=== PATIENT | female | born 1955 | race Caucasian/White ===

== ENCOUNTER → 2017-05-21 | Outpatient (CLI) | payer BC ==
--- NOTE | 2017-05-21 14:04 | MAMMOGRAPHY REPORT ---
BILATERAL DIGITAL SCREENING MAMMOGRAM TOMOSYNTHESIS WITH CAD: 05/21/2017 CLINICAL HISTORY: Routine screening. Patient has no complaints. TECHNIQUE: Breast tomosynthesis in addition to standard 2D mammography was performed. Current study was also evaluated with a Computer Aided Detection (CAD) system. COMPARISON: Comparison is made to exams dated: 05/21/2016 ultrasound, 05/21/2016 mammogram, 05/19/2016 m ammogram, 05/04/2015 mammogram - [facility], 03/24/2013 mammogram, and 09/24/2010 lilly mogram. BREAST COMPOSITION: There are scattered areas of fibroglandular density in both breasts. FINDINGS: No suspicious masses, calcifications, or areas of architectural distortion are noted in ei ther breast. There has been no significant interval change compared to prior exams. Scattered bilater al benign-appearing calcifications are not significantly changed. IMPRESSION: ACR BI-RADS CATEGORY 2: BENIGN There is no mammographic evidence of malignancy. A 1 year screening mammogram is recommended. The pa tient will receive written notification of the results. Approximately 10% of breast cancers are not detected with mammography. A negative mammographic report should not delay biopsy if a clinically suggestive mass is present. Jessi Cooper M.D. /:05/21/2017 08:47:34 Shipfitters Supervisor: Zahida Celeste, [facility] letter sent: Normal 1/2 BI-RADS Code: ACR BI-RADS Category 2: Benign
== END | disposition home or self-care (01) ==
LOC: C.MAMM 07:36
PROVIDERS: ATTEND Obstetrics & Gynecology
DX: Z12.31 Encounter for screening mammogram for malignant neoplasm of breast (principal)

== ENCOUNTER → 2018-06-07 | Outpatient (CLI) | payer OTHER ==
--- NOTE | 2018-06-07 13:56 | MAMMOGRAPHY REPORT ---
BILATERAL DIGITAL SCREENING MAMMOGRAM TOMOSYNTHESIS WITH CAD: 06/07/2018 CLINICAL HISTORY: Routine screening. Patient has no complaints. TECHNIQUE: Breast tomosynthesis in addition to standard 2D mammography was performed. Current study w as also evaluated with a Computer Aided Detection (CAD) system. COMPARISON: Comparison is made to exams dated: 05/21/2017 mammogram, 05/21/2016 mammogram, 05/19/2016 ma mmogram, 05/04/2015 mammogram - [facility], 03/24/2013 mammogram, and 09/24/2010 mamm ogram. BREAST COMPOSITION: There are scattered areas of fibroglandular density in both breasts. FINDINGS: No suspicious masses, calcifications, or areas of architectural distortion are noted in either breast . There has been no significant interval change compared to prior exams. IMPRESSION: ACR BI-RADS CATEGORY 1: NEGATIVE There is no mammographic evidence of malignancy. A 1 year screening mammogram is recommended.( 019) The patient will receive written notification of the results. Some breast cancers are not detected with mammography. A negative mammographic report should not yokasta y biopsy if a clinically suggestive mass is present. Jessi Cooper M.D. ah/:06/07/2018 07:52:03 Finance Business Manager: Zahida Celeste, [facility] letter sent: Normal 1/2 BI-RADS Code: ACR BI-RADS Category 1: Negative
== END | disposition home or self-care (01) ==
LOC: C.MAMM 07:33
PROVIDERS: ATTEND Obstetrics & Gynecology
DX: Z12.31 Encounter for screening mammogram for malignant neoplasm of breast (principal)

== ENCOUNTER 2020-08-31 08:28 | Observation (INO) ==
--- NOTE | 2020-08-06 08:34 | PAT Medication Instructions ---
Medication Instructions Date of Service August 06, 2020 Home Medications Medication Instructions Recorded Nathen Hsieh #1 ea 06/25/20 Joint Plus 1 tab PO QAM albuterol sulfate 2 puff INHALATION 6XD PRN hydrochlorothiazide 25 mg PO QAM levothyroxine [Synthroid] 150 mcg PO 2XWK levothyroxine [Synthroid] 175 mcg PO 5XWK naproxen sodium [Aleve] 220 mg PO QAM quinapril 10 mg PO QAM ASK your surgeon for instructions naproxen sodium [Aleve] 220 mg PO QAM STOP taking 2 weeks before surgery (or as soon as possible if surgery is within 2 weeks) Joint Plus 1 tab PO QAM DO NOT take the morning of surgery hydrochlorothiazide 25 mg PO QAM quinapril 10 mg PO QAM Take morning of surgery With a small sip of water, OTHERWISE NOTHING TO EAT OR DRINK AFTER MIDNIGHT: albuterol sulfate 2 puff INHALATION 6XD PRN (use if needed; please bring with you to hospital day of surgery if possible) levothyroxine [Synthroid] Other Notes If you have any questions please call us at [phone] or [phone] or [phone] or [phone]
--- NOTE | 2020-08-07 10:23 | Anesthesiology Consultation ---
Date of Service August 07, 2020 Assessment & Plan (1) Encounter for pre-operative examination: Per assessment on 08/07: Travel screen negative. No known COVID-19 positive contacts or current COVID-19 related symptoms. Surgeon arranging preop COVID testing . Awaiting results. Chart Review Chart Review: Acceptable Risk for Surgery and Patient seen in Pre Admission Testing Teaching & Discussion Pre-Anesthesia Teaching/Discussion Notes: Instructed NPO after midnight before surgery,except medications with 15 cc of water. Medication instructions provided according to the PAT guidelines. History Surgery Operation Date: 08/31/20 07:00 Proposed Procedures p Left Total Knee Arthroplasty - iMchele Ferrer MD Height/Weight Height: 5 ft 4 in Weight: 108.2 kg Allergies Allergy/AdvReac Type Severity Reaction Status Date / Time No Known Allergies Allergy Verified 07/26/20 08:41 Medications Home Medications Medication Instructions Recorded Confirmed Last Taken Wheeled Walker #1 ea 06/25/20 06/25/20 Unknown Joint Plus 1 tab PO QAM 07/26/20 07/26/20 Unknown albuterol sulfate 2 puff INHALATION 6XD PRN 07/26/20 07/26/20 Unknown hydrochlorothiazide 25 mg PO QAM 07/26/20 07/26/20 Unknown levothyroxine [Synthroid] 150 mcg PO 2XWK 07/26/20 07/26/20 Unknown levothyroxine [Synthroid] 175 mcg PO 5XWK 07/26/20 07/26/20 Unknown naproxen sodium [Aleve] 220 mg PO QAM 07/26/20 07/26/20 Unknown quinapril 10 mg PO QAM 07/26/20 07/26/20 Unknown Past Medical History Medical History Bilateral primary osteoarthritis of knee GERD (gastroesophageal reflux disease) occasional History of bronchitis remote hx, inhaler PRN (rare use) Hypertension Hypothyroidism Morbid obesity Exercise / Class Metabolic Activity II 4-5 Yardwork/Stairs/Walk up hill Past Family History Family History Uncle Family history of diabetes mellitus Uncle Family history of diabetes mellitus Aunt Family history of diabetes mellitus Aunt Family history of diabetes mellitus Past Surgical History Surgical History History of colonoscopy History of tooth extraction WTE Past Anesthesia History No Hx of Anesthesia Complications and No Family Hx of Anesthesia Complications History of PONV No Hx of PONV and No Hx of Motion Sickness Social History Smoking Status: Former smoker Do You Dip or Chew Tobacco: No Smoking End Date: Quit 30 yrs ago Hx Alcohol Use: Yes Alcohol type: beer and wine alcohol intake frequency: a few times a week Hx Substance Use: No Review of Systems Patient denies chest pain, shortness of breath, dyspnea on exertion, fever, chills, cough, wheezing, palpitations. Physical Exam Vital Signs VITALS BP 134/90 P 81 TEMP 98.5 SP02 100%RA RESP 16 PHYSICAL Full neck and c-spine range of motion. Full TMJ range of motion. TMD 3 finger breaths Mallampati Score 2 Dentition: intact, several crowns on molars Lungs: clear throughout to auscultation Cardiac: regular rate and rhythm, no murmurs noted Spine: normal Carotid arteries: negative bruit Extremities: no edema Short, thick neck Testing Laboratory Results 08/07/20 10:45 08/07/20 11:31 PT 10.3 Seconds (9.0-12.0) 08/07/20 10:45 INR 1.0 (0.9-1.1) 08/07/20 10:45 APTT 28.3 Seconds (21.0-31.0) 08/07/20 10:45 Blood Type A Positive 08/07/20 10:45 Antibody Screen NEGATIVE 08/07/20 10:45 Electrocardiogram Date: 08/07/20 SR with PAC's at 81bpm. Chest X-Ray Date: 08/07/20 FINDINGS: The heart is borderline enlarged. There is aortic tortuosity. There is no failure. There is no focal pulmonary consolidation. There are no pleural effusions. IMPRESSION: No active disease in the chest.
--- NOTE | 2020-08-07 11:55 | XRay Report ---
XR chest Pre-admission PA/Lat CLINICAL HISTORY: Preoperative chest COMPARISON STUDY: No previous studies for comparison. FINDINGS: The heart is borderline enlarged. There is aortic tortuosity. There is no failure. There is no focal pulmonary consolidation. There are no pleural effusions.[ IMPRESSION: No active disease in the chest. ACT 112: Negative or not required by law. Electronically signed by: Malachi Elias M.D. 08/07/2020 11:54 AM
[2020-08-07 12:09] LABS: Basophils # (auto) 0.04 K/uL (0-0.2); Basophils % (auto) 0.5 %; Eosinophils % (auto) 3.6 %; Hematocrit (blood only) 42.4 % (37-47); Hemoglobin 13.8 g/dL (12.0-16.0); Immature Granulocytes # (auto) 0.04 K/uL (0.00-0.02); Immature Granulocytes % (auto) 0.5 %; Lymphocytes # (auto) 2.37 K/uL (1.2-3.4); Lymphocytes % (auto) 28.1 %; Mean Corpuscular Hemoglobin 30.1 pg (25-34); Mean Corpuscular Hgb Conc 32.5 g/dL (32-36); Mean Corpuscular Volume 92.4 fL (80-100); Monocytes # (auto) 0.57 K/uL (0.11-0.59); Monocytes % (auto) 6.8 %; Neutrophils # (auto) 5.11 K/uL (1.4-6.5); Neutrophils % (auto) 60.5 %; Platelet Count 334 K/uL (130-400); RDW Coefficient of Variation 13.1 % (11.5-14.5); Red Blood Count 4.59 M/uL (4.2-5.4); White Blood Count 8.43 K/uL (4.8-10.8)
[2020-08-07 12:19] LABS: Partial Thromboplastin Time 28.3 Seconds (21.0-31.0); Prothrombin Time 10.3 Seconds (9.0-12.0)
[2020-08-07 13:00] LABS: BUN Creatinine Ratio 18.8 (10-20); Calcium 9.4 mg/dl (8.5-10.1); Creatinine Clr Calc Pharmacy 66.9 ml/min; Est GFR (African American) 67.3; Est GFR (Non-African American) 58.1; Potassium 4.9 mmol/L (3.5-5.1)
--- NOTE | 2020-08-08 06:08 | Electrocardiogram Report ---
Test Reason : Blood Pressure : / mmHG Vent. Rate : 081 BPM Atrial Rate : 081 BPM P-R Int : 152 ms QRS Dur : 090 ms QT Int : 386 ms P-R-T Axes : 068 036 040 degrees QTc Int : 448 ms Sinus rhythm with Premature atrial complexes Otherwise normal ECG No previous ECGs available Confirmed by Abdias Sumner ([id number]) on 08/08/2020 6:07:56 AM Referred By: Michele Ferrer Confirmed By:Abdias Sumner
--- NOTE | 2020-08-25 08:19 | History and Physical Report ---
DATE OF ADMISSION: 08/31/2020 CHIEF COMPLAINT: Bilateral knee pain and discomfort, left side greater than right. 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 She has got a long history of bilateral knee pain and discomfort, describes it has gotten worse over time. She enjoys exercising, but over the past year or two, she has been unable to do this due to her knee pain. The left side is worse than the right. She had an extensive conservative treatment including injections, which did not help at all. She had Euflexxa as well which helped for a short period of time, but became less effective over time. She describes global pain. It is increased with weightbearing. She feels like she is at the end of the rope and would like to proceed with intervention. PAST MEDICAL HISTORY: 1. Hypothyroidism. 2. Hypertension. 3. Asthma. PAST SURGICAL HISTORY: None. ALLERGIES: None. CURRENT MEDICATIONS: Include: 1. Accupril. 2. Hydrochlorothiazide. 3. Synthroid. 4. Albuterol. SOCIAL HISTORY: A 65-year-old female. Works at [email or web address]. She is . 1-2 drinks per day. Two children. Does not smoke. FAMILY HISTORY: Significant for heart disease and blood clots. There is no known clotting disorders. REVIEW OF SYSTEMS: Negative for diabetes, neurologic problem, vascular problem, bleeding disorders. No chest pain or shortness of breath. No history of DVT or PE. PHYSICAL EXAMINATION: GENERAL: Shows a pleasant, middle-aged female, looks to be in reasonably good health. HEENT: Benign. NECK: Supple, no lymphadenopathy. LUNGS: Clear to auscultation. HEART: Has a regular rate and rhythm. ABDOMEN: Soft, nontender, nondistended. EXTREMITIES: Grossly neurovascularly intact except as follows. Examination of both knees reveal the patient walks with a bit of waddling gait. She has got varus alignment to both knees. Examination of the left knee reveals varus alignment. She is tender over the medial joint line. Small knee effusion. Range of motion about 5 degrees short of full extension to 120 degrees of flexion. There is no instability. Examination of the right knee reveals similar varus alignment. She is tender over the medial joint line. Small knee effusion. Range of motion 5-125. No instability. X-RAYS: X-rays of both knees are reviewed. Shows advanced bilateral knee DJD. She has got complete loss of medial joint space on both sides. She has got osteophytes in all 3 compartments. ASSESSMENT: A 65-year-old female with advanced bilateral knee degenerative joint disease. She has failed conservative measures. The left knee is bothered more than the right and she would like to proceed with left knee replacement. PLAN: We are going to proceed with left total knee replacement. The risks and benefits of this procedure were explained to the patient including but not limited to DVT, PE, , infection, neurological injury, vascular injury, bleeding problem, pain, limited range of motion, stiffness, failure to relieve her symptoms, incomplete relief of symptoms, need for further surgery in future, fracture, leg length inequality, nerve palsy, persistent pain, etc. The patient understands and desires to proceed. Informed consent was obtained. She will have to hold her Accupril the morning of surgery. Take the Synthroid with a sip of water. As far as discharge plans, she will likely be discharged home using [facility] home health program.
[~2020-08-31 08:28] MED LIST: ACETAMINOPHEN 500 MG TAB PO SCH; BUPIVACAINE 0.5 % 5 MG/1 ML PF 10ML VIAL ONE; BUPIVACAINE LIPOSOME/PF 266 MG, BUPIVACAINE/EPINEPHRINE 50 ML, SODIUM CHLORIDE 0.9% 30 ... INFIL SCH; GABAPENTIN 600 MG DOSE PO SCH; LR 500ML BOLUS, THEN 15ML/HR IV SCH; LR 60ML/HR IV SCH; METOCLOPRAMIDE HCL 10 MG TABLET PO SCH; MIDAZOLAM HCL 1 MG/ML 2ML VIAL ONE; TRANEXAMIC ACID 1,000 MG **IV Intra-op IV SCH; ceFAZolin 2000MG 2,000 MG/15 ML SYR IV SCH; fentaNYL citrate 100 MCG/2 ML VIAL ONE
--- NOTE | 2020-08-31 08:52 | History & Physical Bridge Note ---
Date of Service August 31, 2020 History & Physical Bridge Note I have examined the patient, reviewed the History & Physical and in the interval since the performance of the History & Physical I have noted the following changes of clinical significance: no changes noted
[2020-08-31] MEDS ORDERED: BUPIVACAINE 0.5 % 5 MG/1 ML PF 10ML VIAL ONE (10:17)
[2020-08-31] MEDS ORDERED: ONDANSETRON INJ 2 MG/ML 2 ML VIAL ONE (10:22)
[2020-08-31] MEDS ORDERED: LIDOCAINE HCL 2% 2 ML VIAL/AMP(20MG/ML) INFIL ONE (10:22)
[2020-08-31] MEDS ORDERED: PROPOFOL IV EMULSION 10 MG/ML 20 ML VIAL IV ONE ×3 (10:22→12:54)
[2020-08-31] MEDS ORDERED: SODIUM CHLORIDE 0.9% PF 50 ML VIAL ONE (11:35)
[2020-08-31] MEDS ORDERED: BUPIVACAINE LIPOSOME 1.3% 266 MG/20 ML VIAL ONE (11:35)
[2020-08-31] MEDS ORDERED: BACITRACIN INJ 50,000 UNIT VIAL ONE (11:35)
[2020-08-31] MEDS ORDERED: BUPIVACAINE 0.25% 30 ML VIAL ONE (11:36)
[2020-08-31] MEDS ORDERED: EPINEPHrine INJ 1 MG/ML AMP ONE (11:36)
[2020-08-31] MEDS ORDERED: MIDAZOLAM HCL 1 MG/ML 2ML VIAL ONE (11:53)
--- NOTE | 2020-08-31 13:34 | Post Operative Brief Note ---
PG Immediate Post Op with CF Date of Surgery August 31, 2020 Pre & Post Diagnosis Operation Date: 08/31/20 10:40 Pre-Op Diagnosis: Left Knee Advanced Degenerative Joint Disease Post-Op Diagnosis: Left Knee Advanced Degenerative Joint Disease I identified the patient and participated in the time-out.: Yes Procedure Operation Date: 08/31/20 10:40 Actual Procedures p Left Total Knee Arthroplasty(Left) - Michele Ferrer MD Surgeon Michele Ferrer MD Systems Admin ZAHIRA Gibbons Estimated Blood Loss 50 Findings Consistent with Post-Op Diagnosis Fluids 500 cc Specimens Specimen Description: A. Left Knee Bone and Tissue Drains Odonnell Catheter Anesthesia Type Spinal MAC Complications none Disposition Accompanied Patient To Recovery: No Disposition: Recovery Room
--- NOTE | 2020-08-31 13:49 | Operative Report ---
Post Operative Report Pre & Post Diagnosis Operation Date: 08/31/20 10:40 Pre-Op Diagnosis: Left Knee Advanced Degenerative Joint Disease Post-Op Diagnosis: Left Knee Advanced Degenerative Joint Disease I identified the patient and participated in the time-out.: Yes Procedure Operation Date: 08/31/20 10:40 Actual Procedures p Left Total Knee Arthroplasty(Left) - Michele Ferrer MD Surgeon Michele Ferrer MD Managed Care Analyst ZAHIRA Gibbons Estimated Blood Loss 50 Findings Consistent with Post-Op Diagnosis Operative findings revealed advanced left knee DJD. She had extensive grade 4 bhig-ta-pazm disease and eburnation of the medial compartment. She had a focal area of grade 4 chondrosis of the lateral femoral condyle and some focal grade 4 changes of the trochlea as well. She had a large knee joint effusion. Varus deformity to her knee. Fluids 500 cc. Specimens Left knee sent for pathology. Drains None. Anesthesia Type Spinal MAC Complications none Disposition Accompanied Patient To Recovery: No Disposition: Recovery Room Indications Patient is a 65-year-old female has had a fairly long history of bilateral knee pain discomfort is gradually gotten worse over the years. She has been through extensive conservative treatment which became less effective over time. X-ray showed bilateral knee DJD. She elected proceed with left total knee arthroplasty. Description of Procedure Operative implants consisted of: 1. Biomet Vanguard size 62.5 left posterior stabilized femoral component. 2. Biomet size 67 tibial tray. 3. 10 mm posterior stabilized polyethylene insert. 4. 28 x 8 all polypatella. Patient was taken to the operating identified and placed on the operating table supine position but all contact areas were properly padded. IV antibiotics tried by anesthesia team. A spinal anesthetic and abductor canal block had been provided in the holding area. A Odonnell catheter was placed in sterile fashion. Left thigh turn was then placed in left lower extremities and prepped and draped in usual sterile fashion. The left leg was elevated exsanguinated with use of an Esmarch and tourniquet placed at 3 mmHg. An anterior approach to the left knee was then performed to longitudinal incision centered over the patella. Sharp dissection was got through subcutaneous tissue down to the extensor mechanism. A medial parapatellar arthrotomy incision was made. Some subperiosteal dissection was carried out medially. The fat pad was resected from each patella tendon. The lateral patellofemoral ligament was released. Patella was subluxated laterally and the knee was flexed. The osteophytes were taken off distal femur. The ACL and PCL were then released from the distal femur and the tibia subluxated anteriorly. The external tibial alignment jig was then placed in the interface the tibia and adjusted 14 mm medially. The proximal tibial cut was made remove about a millimeter bone from most efficient aspect the medial tibial plateau. Some osteophytes were taken off medial and posterior medially. The tibia was then sized to a size 67. We did downsize a slightly in order to get better rotation. Attention drawn the femur. The distal femur stem with a sharp drill. Intramedullary canal was suction. A left 5 degree valgus cutting guide was placed. The distal femoral cutting block was pinned in place. Distal femoral cut was made to take an additional 3 mm bone off distal femur. The femur was then sized to a size 62.5. The AP cutting block was pinned parallel to the epicondylar axis which was 5 degrees of external rotation. The anterior cut, anterior chamfer, posterior cut, posterior chamfer cuts were made. Box cutting guide was placed in just slight lateral box cut was made. The knee was flexed. The remnants of the medial lateral menisci were excised. The osteophytes were taken off the posterior aspect of the femur. A trial femoral component was placed. The tibial tray was pinned in maximum external rotation and the drill and stem punch were used to create defect in proximal to for the tibial tray. The knee was then trialed and the 10 mm insert fit most appropriately. Attention drawn the patella. The patella was cleaned of all soft tissues. Patella thickness measured 22 mm in thickness and was cut to 14. Was sized to a size 28 patella. The lug holes were drilled for the 28 patella. The lateral osteophyte is moved. Patella button was placed. Knee was taken through range of motion and the patella tracked nicely with no thumbs test. Attention drawn to place the permanent components. All trial components were removed. Bone plug was placed in the distal femur limit blood loss put a double batch Palacos G cement was mixed. BiomStarGenguard size 62.5 left posterior stabilized femoral component, a size 67 tibial tray, 10 mm posterior box polyethylene insert, and a 28 x 8 all polypatella and then cemented in place. Knee was brought out into full extension until cement hardened. Final cement check was then performed. The pericapsular tissues were injected with 100 cc of combination of 20 cc of Exparel, 30 cc normal saline, 50 cc quarter percent Marcaine with epinephrine. The patient did receive 1 g tranexamic acid. The tourniquet was then let down for final turn time 58 minutes. Hemostasis assured use electrocautery. Extensor mechanism closed with combination 1 PDS suture #1 Vicryl suture in [id number] fashion. Extensor mechanism checked found to be intact the subcutaneous tissue then closed with 2 Dexon suture in a buried interrupted fashion skin was closed skin boy. Leg was then cleaned dried and sterile dressed with Xeroform, 4 x 4's, sterile ABD pad, sterile cast padding, Mert bandage were applied. Patient then transferred to the recovery room in stable condition. Patient tolerated procedure well no complications. Joseph Gibbons, my physician medical office assistant instructor, was present for the entire procedure. His assistance was essential and required for appropriate patient positioning, prepping and draping, surgical exposure, performing the technical details of the operation, placement the implants, closure of the wound, and placement of the sterile bandage. I attest to the content of the Intraoperative Record and any orders documented therein. Any exceptions are noted below.
[2020-08-31] MEDS ORDERED: ATROPINE SULFATE 0.1 MG/ML 10ML SYR IV PRN (14:07)
[2020-08-31] MEDS ORDERED: ePHEDrine sulfate 50 MG/ML AMP IV PRN (14:07)
[2020-08-31] MEDS ORDERED: fentaNYL citrate 100 MCG/2 ML VIAL IV PRN (14:07)
[2020-08-31] MEDS ORDERED: ONDANSETRON INJ 2 MG/ML 2 ML VIAL IV PRN ×2 (14:07→14:42)
--- NOTE | 2020-08-31 14:08 | Anesthesiology Progress Note ---
Date of Service August 31, 2020 Anesthesia Post Procedure Vital Signs Vital Signs: Temp Pulse Pulse Resp BP Pulse Ox 08/31/20 13:55 82 17 146/91 H 100 08/31/20 13:45 67 14 144/75 H 99 08/31/20 13:39 98.1 F 79 14 140/87 100 08/31/20 09:26 98.8 F 88 20 180/86 H 98 Pain Intensity Left Knee: Pain Intensity: 3 Transfer of Care Handoff Completed per policy Notes Mental Status: alert / awake / arousable and participated in evaluation Patient Amnestic to Procedure: Yes Nausea / Vomiting: adequately controlled Pain: adequately controlled Airway Patency, RR, SpO2: stable & adequate BP & HR: stable & adequate Hydration State: stable & adequate Neuraxial Anesthesia: was administered and sensory block is resolving Anesthetic Complications: no major complications apparent and Pt Satisfied with anesthetic care
--- NOTE | 2020-08-31 14:10 | XRay Report ---
LEFT KNEE 2 VIEWS History: Left total knee arthroplasty. Degenerative arthritis. Postop. FINDINGS: The patient is status post a left total knee arthroplasty. The hardware is intact. No fract ure or dislocation. Skin boy are in place. IMPRESSION: Left total knee arthroplasty. No evidence for hardware complication. ACT 112: Negative or not required by law. Electronically signed by: Geoffrey Lara M.D. 08/31/2020 2:09 PM
[2020-08-31] MEDS ORDERED: INFLUENZA VIRUS QUAD VACCINE 0.5 ML SYR IM ONE (14:41)
[2020-08-31] MEDS ORDERED: INFLUENZA ADMINISTRATION CHARGE ONE (14:41)
[2020-08-31] MEDS ORDERED: MAGNESIUM HYDROXIDE SUSP 30 ML UDC PO PRN (14:42)
[2020-08-31] MEDS ORDERED: ALBUTEROL HFA 8 GM INHALER INH PRN (14:42)
[2020-08-31] MEDS ORDERED: ALUMINUM/MAGNESIUM SUSP 30 ML UDC PO PRN (14:42)
[2020-08-31] MEDS ORDERED: HYDROmorphone INJ 0.5 MG/0.5 ML SYR IV PRN (14:42)
[2020-08-31] MEDS ORDERED: METOCLOPRAMIDE HCL INJ 5 MG/ML 2 ML VIAL IV PRN (14:42)
[2020-08-31] MEDS ORDERED: diphenhydrAMINE Capsule 25 MG CAP PO PRN (14:42)
[2020-08-31] MEDS ORDERED: oxyCODONE HCL IR 5 MG TAB (IMMEDIATE RELEASE) PO PRN (14:42)
[2020-08-31] MEDS ORDERED: NALOXONE HCL 0.4 MG/1 ML VIAL/CARP IV PRN (14:42)
[2020-08-31] MEDS ORDERED: bisacodyL 10 MG SUPP PR PRN (14:42)
[2020-08-31] MEDS: ACETAMINOPHEN 500 MG TAB PO SCH ×2 (17:16→22:42)
[2020-08-31] MEDS: KETOROLAC 30 MG/ML VIAL IV SCH (17:17)
[2020-08-31] MEDS: Scopolamine CHECK PATCH PLACEMENT SCH (17:23)
[2020-08-31] MEDS: SODIUM CHLORIDE 0.9% 1000ML 1,000 ML IV SCH (17:23)
[2020-08-31] MEDS: FERROUS GLUCONATE 324 MG TAB PO SCH (18:30)
[2020-08-31] MEDS: ASCORBIC ACID 500 MG TAB PO SCH (18:30)
[2020-08-31] MEDS ORDERED: TRANEXAMIC ACID / 0.7% NACL 1,000 MG/100 ML BAG IV SCH (19:38)
[2020-08-31] MEDS: ceFAZolin 2000MG 2,000 MG/15 ML SYR IV SCH (20:49)
[2020-08-31] MEDS: ASPIRIN 81 MG ECTAB PO SCH (20:51)
[2020-08-31] MEDS: DOCUSATE SODIUM 100 MG CAP PO SCH (20:52)
[2020-08-31] MEDS: TAPENTADOL HCL ER 50 MG TABCR PO SCH (20:56)
[2020-08-31] MEDS ORDERED: SENNA 8.6 MG TAB PO SCH (21:00)
[2020-09-01] MEDS: KETOROLAC 30 MG/ML VIAL IV SCH ×3 (00:05→12:16)
[2020-09-01] MEDS: Scopolamine CHECK PATCH PLACEMENT SCH ×2 (00:05→08:14)
[2020-09-01] MEDS: ceFAZolin 2000MG 2,000 MG/15 ML SYR IV SCH (03:11)
[2020-09-01] MEDS: SODIUM CHLORIDE 0.9% 1000ML 1,000 ML IV SCH (03:11)
[2020-09-01] MEDS: ACETAMINOPHEN 500 MG TAB PO SCH ×2 (05:54→12:15)
[2020-09-01] MEDS ORDERED: LEVOTHYROXINE SODIUM 175 MCG TABLET PO SCH (06:30)
[2020-09-01 07:21] LABS: Hematocrit (blood only) 36.4 % (37-47); Hemoglobin 11.9 g/dL (12.0-16.0); Mean Corpuscular Hemoglobin 30.1 pg (25-34); Mean Corpuscular Hgb Conc 32.7 g/dL (32-36); Mean Corpuscular Volume 92.2 fL (80-100); Mean Platelet Volume 10.2 fL (7.4-10.4); Platelet Count 274 K/uL (130-400); RDW Coefficient of Variation 12.6 % (11.5-14.5); RDW Standard Deviation 42.8 fL (36.4-46.3); Red Blood Count 3.95 M/uL (4.2-5.4); White Blood Count 8.23 K/uL (4.8-10.8)
[2020-09-01 07:43] LABS: BUN Creatinine Ratio 18.8 (10-20); Calcium 8.1 mg/dl (8.5-10.1); Creatinine Clr Calc Pharmacy 59.5 ml/min; Est GFR (African American) 58.9; Est GFR (Non-African American) 50.8; Potassium 3.9 mmol/L (3.5-5.1)
[2020-09-01] MEDS: ASPIRIN 81 MG ECTAB PO SCH (08:14)
[2020-09-01] MEDS: TAPENTADOL HCL ER 50 MG TABCR PO SCH (08:15)
[2020-09-01] MEDS: ASCORBIC ACID 500 MG TAB PO SCH (08:15)
[2020-09-01] MEDS: FERROUS GLUCONATE 324 MG TAB PO SCH (08:15)
[2020-09-01] MEDS: DOCUSATE SODIUM 100 MG CAP PO SCH (08:15)
--- NOTE | 2020-09-01 08:41 | Progress Notes ---
DATE: 09/01/2020 SUBJECTIVE: A 65-year-old female postop day 1 from left knee replacement. She is doing pretty well. Had a pretty good night. Pain is controlled. No chest pain or shortness of breath. Not feeling dizzy or lightheaded. OBJECTIVE: VITAL SIGNS: Temperature 36.6. Vital signs stable. GENERAL: Shows a pleasant, middle-aged female. She is sitting up in her bedside chair, looks pretty comfortable this morning. EXTREMITIES: Examination of the leg reveals the leg to be well aligned. Dressing is clean, dry and intact. She can dorsiflex and plantarflex her foot appropriately. She can do a pretty good straight leg raise. LABORATORY DATA: Hemoglobin 11.9. Hematocrit 36.4. Electrolytes are stable. ASSESSMENT: A 65-year-old female postoperative day 1 from a left knee replacement, doing pretty well. Her pain is controlled. She is neurologically intact. PLAN: 1. DVT prophylaxis including thigh-high TEDs, SCDs, and aspirin twice a day. 2. PT/OT. Weight bear as tolerated. Left total knee protocol. 3. Pain control, doing well with current pain regimen. 4. Disposition: Plan to discharge to home with some home health later today if her pain is controlled and she does okay in therapy.
[2020-09-01] MEDS ORDERED: ENALAPRIL MALEATE 10 MG TAB PO SCH (09:00)
[2020-09-01] MEDS ORDERED: hydroCHLOROthiazide 25 MG TAB PO SCH (09:00)
[2020-09-01] MEDS ORDERED: MULTIVITAMIN TAB PO SCH (09:00)
[2020-09-03] MEDS ORDERED: LEVOTHYROXINE SODIUM 150 MCG TABLET PO SCH (06:30)
--- NOTE | 2020-09-06 07:53 | Discharge Summary ---
Date of Service September 06, 2020 Admission HPI Per Admitting Provider Documented in the H & P Admission Exam (Per Admitting) Constitutional Documented in the H & P Discharge Data Consultations 08/31/20 14:42 Consult Case Management - Discharge Planning Routine Procedures Performed Operation Date: 08/31/20 10:40 Actual Procedures p Left Total Knee Arthroplasty(Left) - Michele Ferrer MD Hospital Course (1) Status post total left knee replacement: This patient is a 65 year old female admitted on 08/31/20 and underwent total knee arthroplasty. She tolerated the procedure well and there were no complications. Transferred to the PACU post op and later to the orthopedic floor for further care. She was given ancef for antibiotic prophylaxis. She was also given MIKE stockings, SCDs, and aspirin for DVT prophylaxis. Hemoglobin, hematocrit, and vital signs were monitored during her hospital stay and remained stable. Did not require any blood transfusions. There were no complications during her hospital stay. By post op day #1 the patient was tolerating a regular diet, pain was reasonably controlled with oral pain medicine, and she was participating in physical therapy. On post op day #1 the patient was discharged home and set up with home health care. She was given printed discharge instructions including prescriptions for extra strength tylenol, aspirin, and oxycodone. Continue physical therapy, weight bearing as tolerated. Continue MIKE stockings. Follow up approximately 2 weeks post op or sooner if there are problems or concerns. Coding Level of Care Code None Diagnoses Status post total left knee replacement Z96.652
== END 2020-09-01 14:24 | disposition home health service (06) ==
LOC: 3E 08:28 → ASU 08:28
DX: E66.01 Morbid (severe) obesity due to excess calories; I10 Essential (primary) hypertension; Z79.890 Hormone replacement therapy; M17.12 Unilateral primary osteoarthritis, left knee; Z68.41 Body mass index [BMI] 40.0-44.9, adult; E03.9 Hypothyroidism, unspecified; Z79.899 Other long term (current) drug therapy; J45.909 Unspecified asthma, uncomplicated; K21.9 Gastro-esophageal reflux disease without esophagitis

== ENCOUNTER 2021-01-01 06:43 | Observation (INO) ==
--- NOTE | 2020-12-07 11:45 | PAT Medication Instructions ---
Medication Instructions Date of Service December 07, 2020 Home Medications Medication Instructions Recorded Nathen Hsieh #1 ea 06/25/20 albuterol sulfate 2 puff INHALATION 6XD PRN hydrochlorothiazide 25 mg PO QAM levothyroxine [Synthroid] 175 mcg PO QAM quinapril 10 mg PO QAM DO NOT take the morning of surgery hydrochlorothiazide 25 mg PO QAM quinapril 10 mg PO QAM Take morning of surgery With a small sip of water, OTHERWISE NOTHING TO EAT OR DRINK AFTER MIDNIGHT: albuterol sulfate 2 puff INHALATION 6XD PRN (use if needed; please bring with you to hospital day of surgery if possible) levothyroxine [Synthroid] 175 mcg PO QAM Take evening before surgery albuterol sulfate 2 puff INHALATION 6XD PRN (if needed) Other Notes If you have any questions please call us at [phone] or [phone] or [phone] or [phone]
--- NOTE | 2020-12-18 10:28 | Anesthesiology Consultation ---
Date of Service December 18, 2020 Assessment & Plan (1) Encounter for pre-operative examination: - Per assessment on 11/26: Travel screen negative. No known COVID-19 positive contacts or current COVID-19 related symptoms. Surgeon arranging preop COVID testing. Awaiting results. - S/P Left TKA: 08/31/20: SAB x1 attempt at L3-L4 + PNB at [facility] Chart Review Chart Review: Acceptable Risk for Surgery and Patient NOT seen in Pre Admission Testing History Surgery Operation Date: 01/01/21 08:50 Proposed Procedures p Right Total Knee Arthroplasty - Michele Ferrer MD Height/Weight Height: 5 ft 4 in Weight: 99.79 kg Allergies Allergy/AdvReac Type Severity Reaction Status Date / Time No Known Allergies Allergy Verified 11/26/20 10:15 Medications Home Medications Medication Instructions Recorded Confirmed Last Taken Wheeled Walker #1 ea 06/25/20 06/25/20 Unknown albuterol sulfate 2 puff INHALATION 6XD PRN 07/26/20 11/26/20 07/27/20 hydrochlorothiazide 25 mg PO QAM 07/26/20 11/26/20 08/30/20 08:00 levothyroxine [Synthroid] 175 mcg PO QAM 07/26/20 11/26/20 08/30/20 08:00 quinapril 10 mg PO QAM 07/26/20 11/26/20 08/30/20 08:00 Past Medical History Medical History Bilateral primary osteoarthritis of knee GERD (gastroesophageal reflux disease) occasional History of bronchitis remote hx, inhaler PRN (rare use) Hypertension Hypothyroidism Obesity Past Family History Family History Uncle Family history of diabetes mellitus Uncle Family history of diabetes mellitus Aunt Family history of diabetes mellitus Aunt Family history of diabetes mellitus Past Surgical History Surgical History History of arthroplasty of left knee History of colonoscopy History of tooth extraction WTE Social History Smoking Status: Never smoker Do You Dip or Chew Tobacco: No Hx Alcohol Use: Yes Alcohol type: beer and wine alcohol intake frequency: a few times a month Hx Substance Use: No substance use type: does not use Testing Laboratory Results 12/10/20 WBC 8.66 H/H 13.3/40.8 PLATELETS 340 SODIUM 138 POTASSIUM 4.6 CHLORIDE 103 CO2 29 BUN 20 CREATININE 0.95 GLUCOSE 76 PT 9.9 PTT 25.6 INR 1.0 T&S A+Ab- Electrocardiogram Date: 08/07/20 SR with PAC's at 81bpm. Chest X-Ray Date: 08/07/20 FINDINGS: The heart is borderline enlarged. There is aortic tortuosity. There is no failure. There is no focal pulmonary consolidation. There are no pleural effusions. IMPRESSION: No active disease in the chest.
[~2021-01-01 06:43] MED LIST changes: +EPINEPHrine INJ 1 MG/ML AMP ONE; +FAMOTIDINE 20 MG TAB PO SCH; -METOCLOPRAMIDE HCL 10 MG TABLET PO SCH; -MIDAZOLAM HCL 1 MG/ML 2ML VIAL ONE; +ROPIVACAINE 0.5% 5 MG/ML 30 ML VIAL ONE; +Scopolamine 1 MG TDSY TD SCH; -fentaNYL citrate 100 MCG/2 ML VIAL ONE
--- NOTE | 2021-01-01 06:54 | History & Physical Bridge Note ---
Date of Service January 01, 2021 History & Physical Bridge Note I have examined the patient, reviewed the History & Physical and in the interval since the performance of the History & Physical I have noted the following changes of clinical significance: no changes noted
[2021-01-01] MEDS ORDERED: PROPOFOL IV EMULSION 10 MG/ML 20 ML VIAL IV ONE (08:25)
[2021-01-01] MEDS ORDERED: LIDOCAINE HCL 2% 2 ML VIAL/AMP(20MG/ML) INFIL ONE (08:25)
[2021-01-01] MEDS ORDERED: MIDAZOLAM HCL 1 MG/ML 2ML VIAL ONE ×2 (08:25→10:11)
[2021-01-01] MEDS ORDERED: fentaNYL citrate 100 MCG/2 ML VIAL ONE (08:51)
[2021-01-01] MEDS ORDERED: BACITRACIN INJ 50,000 UNIT VIAL ONE (09:39)
[2021-01-01] MEDS ORDERED: SODIUM CHLORIDE 0.9% PF 50 ML VIAL ONE (09:39)
[2021-01-01] MEDS ORDERED: BUPIVACAINE LIPOSOME 1.3% 266 MG/20 ML VIAL ONE (09:39)
[2021-01-01] MEDS ORDERED: EPINEPHrine INJ 1 MG/ML AMP ONE (09:40)
[2021-01-01] MEDS ORDERED: BUPIVACAINE 0.25% 30 ML VIAL ONE (09:40)
[2021-01-01] MEDS ORDERED: ePHEDrine sulfate 50 MG/ML AMP IV PRN (09:57)
[2021-01-01] MEDS ORDERED: ATROPINE SULFATE 0.1 MG/ML 10ML SYR IV PRN (09:57)
[2021-01-01] MEDS ORDERED: PHENYLEPHRINE 100MCG/ML 5ML SYR ONE (11:20)
--- NOTE | 2021-01-01 11:48 | Operative Report ---
Post Operative Report Pre & Post Diagnosis Operation Date: 01/01/21 08:50 Pre-Op Diagnosis: Right Knee DJD, Right Knee Pain Post-Op Diagnosis: Right Knee DJD, Right Knee Pain I identified the patient and participated in the time-out.: Yes Procedure Operation Date: 01/01/21 08:50 Actual Procedures p Right Total Knee Arthroplasty(Right) - Michele Ferrer MD Surgeon Michele Ferrer MD Online Editor ZAHIRA Gibbons Estimated Blood Loss 50 Findings Consistent with Post-Op Diagnosis Operative findings revealed advanced right knee tricompartment DJD. She had extensive grade 4 [id number] disease of the medial compartment. She is some focal grade 4 changes in the lateral compartment and more diffuse grade 4 changes the patellofemoral compartment. Moderate-sized joint effusion. Osteophytes primarily in the medial compartment. Fluids 800 cc. Specimens Right knee sent for pathology. Drains None. Anesthesia Type Spinal MAC Complications none Disposition Accompanied Patient To Recovery: No Disposition: Recovery Room Indications Patient is 65-year-old female said a long history of bilateral knee pain discomfort describes gotten worse over time. She failed conservative measures. She had her left knee replaced for months ago and is done remarkably well from this. She continued be limited by right knee pain. She elected proceed with right total knee arthroplasty. Description of Procedure Operative implants consist of: 1. Biomet Vanguard size 62.5 right posterior stabilized femoral component. 2. Biomet size 67 tibial tray. 3. 10 mm posterior stabilized polyethylene insert. 4. 28 x 8 all polypatella. The patient was taken to the operating room, identified, placed on the operating table supine position but all contact areas were properly padded. IV antibiotics tried by anesthesia team. A spinal anesthetic and abductor canal block had been provided in the holding area. Odonnell catheter was placed in sterile fashion. Right thigh turn was then placed in the right lower extremities and prepped draped in usual sterile fashion. The right leg was elevated exsanguinated with use of an Esmarch and turns placed at 300 mmHg. An anterior approach to the right knee was then performed to longitudinal incision centered over the patella. Sharp dissection was got through subcutaneous this down to the extensor mechanism. A medial parapatellar arthrotomy incision was made. Some subperiosteal dissection was carried out medially. The fat pad was resected from each patella tendon. Lateral patellofemoral ligament was released. Patella was subluxated laterally and the knee was flexed. The osteophytes were taken off distal femur. The ACL and PCL were then released from the distal femur and the tibia subluxated anteriorly. The external tibial alignment jig was then placed in the interface the tibia and adjusted 14 mm medially. Proximal tibial cut was made remove about a millimeter or 2 of bone from the most deficient aspect medial tibial plateau. Some osteophytes taken off medial and posterior medially. Tibia sized to a size 67. Attention drawn the femur. The distal femur examined with a sharp drill. The intramedullary canal was suction. A right 5 degree valgus cutting guide was placed. The distal femoral cutting block was pinned in place. Distal femoral cut was made to take an additional 3 mm bone off distal femur. The femur was then sized to a size 62.5. Did downsize this slightly. The AP cutting block was pinned parallel to the epicondylar axis which was 4 degrees of external rotation. Anterior cut, anterior chamfer, posterior cut, posterior chamfer cuts were made. The box cutting guide was placed in a just slight lateral box cut was made. The knee was flexed. The remnants of the medial and lateral menisci were excised. The osteophytes were taken off the posterior aspect of the femur. A trial femoral component was placed. The tibial tray was pinned in maximum external rotation and the drill and stem punch were used to create defect in proximal tibia for the tibial tray. Knee was then trialed and the 10 mm insert fit most appropriately. Attention then drawn the patella. The patella was cleaned of all soft tissues. Patella thickness measured 21 mm in thickness was cut down to 13. Was sized to a 28 patella. The lug holes were drilled for the 28 patella. The lateral osteophyte was removed. Patella button was placed. Knee was taken through range of motion patella tracked nicely with no thumbs test. Attention drawn to placing permanent components. All trial components were removed. A bone plug was placed in the distal femur limit blood loss. A double batch Palacos G cement was mixed. A Biomet Vanguard size 62.5 right posterior stabilized femoral component, size 67 tibial tray, a 10 mm posterior stabilized polyethylene insert, and a 28 x 8 all polypatella were then cemented in place. Knee was brought out in full extension total cement hardened. Final cement checkup then performed. The pericapsular tissues were injected with total 100 cc cc of combination of 20 cc of Exparel, 30 cc normal saline, 50 cc of quarter percent Marcaine with epinephrine. Patient did receive 1 g tranexamic acid per the tourniquet was then let down for a final turn time of 53 minutes. Hemostasis assured use electrocautery. The extensor mechanism closed with combination 1 PDS suture and #1 Vicryl suture in [id number] fashion. Extensor mechanism checked found to be intact with the subcutaneous tissue then closed with 2 Dexon suture in buried in the fascia skin was closed skin boy. Leg was then cleaned dried a sterile dressing both Xer oform, 4 x 4's, sterile cast padding, Mert bandage were applied. Patient then transferred to the recovery room in stable condition. Patient tolerated the procedure well and there were no complications. Joseph Gibbons, my physician reproductive healthcare assistant, was present for the entire procedure. His assistance was essential and required for appropriate patient positioning, prepping and draping, surgical exposure, performing the technical details of the operation, placement the implants, closure of the wound, and placement of the sterile bandage. I attest to the content of the Intraoperative Record and any orders documented therein. Any exceptions are noted below.
--- NOTE | 2021-01-01 12:21 | Anesthesiology Progress Note ---
Date of Service January 01, 2021 Anesthesia Post Procedure Vital Signs Vital Signs: Temp Pulse Resp BP Pulse Ox 01/01/21 12:00 36.6 C 72 16 116/68 96 01/01/21 11:55 72 16 122/64 96 01/01/21 11:45 78 16 112/52 L 98 01/01/21 11:38 36.4 C L 81 16 113/56 L 100 01/01/21 07:19 37.2 C 90 20 178/90 H 95 Pain Intensity Right Knee: Pain Intensity: 5 Transfer of Care Handoff Completed per policy Notes Mental Status: alert / awake / arousable Patient Amnestic to Procedure: Yes Nausea / Vomiting: adequately controlled Pain: adequately controlled Airway Patency, RR, SpO2: stable & adequate BP & HR: stable & adequate Hydration State: stable & adequate Neuraxial Anesthesia: was administered and sensory block is resolving Anesthetic Complications: no major complications apparent
--- NOTE | 2021-01-01 12:24 | XRay Report ---
XR knee RT 1 or 2V routine HISTORY: 65 years-old Female Surgical Post Op right knee total joint arthroplasty COMPARISON: Knee radiographs 06/25/2020 TECHNIQUE: 2 views of the right knee FINDINGS: Right knee total joint arthroplasty and patella resurfacing. Satisfactory alignment without acute fra cture or retained foreign body. Anterior midline skin boy are noted along with expected postsurgi fernando soft tissue swelling and deep tissue air. IMPRESSION: Right knee total joint arthroplasty and patella resurfacing with expected postoperative c hanges. ACT 112: Negative or not required by law. The above report was generated using voice recognition software. It may contain grammatical, syntax o r spelling errors. Electronically signed by: Abdirahman Lacy M.D. 01/01/2021 12:23 PM
[2021-01-01] MEDS ORDERED: ALBUTEROL HFA 8 GM INHALER INH PRN (12:45)
[2021-01-01] MEDS ORDERED: bisacodyL 10 MG SUPP PR PRN (12:45)
[2021-01-01] MEDS ORDERED: ALUMINUM/MAGNESIUM SUSP 30 ML UDC PO PRN (12:45)
[2021-01-01] MEDS ORDERED: diphenhydrAMINE Capsule 25 MG CAP PO PRN (12:45)
[2021-01-01] MEDS ORDERED: NALOXONE HCL 0.4 MG/1 ML VIAL/CARP IV PRN (12:45)
[2021-01-01] MEDS ORDERED: oxyCODONE HCL IR 5 MG TAB (IMMEDIATE RELEASE) PO PRN (12:45)
[2021-01-01] MEDS ORDERED: MAGNESIUM HYDROXIDE SUSP 30 ML UDC PO PRN (12:45)
[2021-01-01] MEDS ORDERED: ONDANSETRON INJ 2 MG/ML 2 ML VIAL IV PRN (12:45)
[2021-01-01] MEDS ORDERED: METOCLOPRAMIDE HCL INJ 5 MG/ML 2 ML VIAL IV PRN (12:45)
[2021-01-01] MEDS ORDERED: HYDROmorphone INJ 0.5 MG/0.5 ML SYR IV PRN (12:45)
[2021-01-01] MEDS: KETOROLAC 30 MG/ML VIAL IV SCH ×2 (14:22→20:13)
[2021-01-01] MEDS: ACETAMINOPHEN 500 MG TAB PO SCH ×2 (14:22→22:15)
[2021-01-01] MEDS: SODIUM CHLORIDE 0.9% 1000ML 1,000 ML IV SCH ×2 (16:09→23:28)
[2021-01-01] MEDS ORDERED: TRANEXAMIC ACID / 0.7% NACL 1,000 MG/100 ML BAG IV SCH (17:30)
--- NOTE | 2021-01-01 17:31 | Progress Notes ---
DATE: 01/01/2021 SUBJECTIVE: A 65-year-old female postop from a right knee replacement. She is doing well. Just starting to get the feeling back in her legs. She is not really having much pain yet. No chest pain or shortness of breath. Not feeling dizzy or lightheaded. OBJECTIVE: VITAL SIGNS: Temperature 36.4. Vital signs are stable. GENERAL: Shows a pleasant, middle-aged female. She is sitting up in bed and talking to her , looks quite comfortable. LUNGS: Clear to auscultation. HEART: Has a regular rate and rhythm. ABDOMEN: Soft, nontender, nondistended. EXTREMITIES: Grossly neurovascularly intact except as follows: Examination of the right leg reveals the dressing to be clean, dry and intact. Leg is well aligned. Her toes are pink with brisk refill. Good distal pulse. She can dorsiflex and plantarflex her foot pretty normally. X-RAYS: X-rays of the right knee from recovery room were reviewed. It shows a cemented posterior stabilized total knee arthroplasty. Components looked to be in good position. No signs of problems. It is a somewhat rotated film. ASSESSMENT: A 65-year-old female postoperative from right knee replacement, doing well. She is neurologically intact. Pain is controlled. Block is just wearing off. PLAN: 1. DVT prophylaxis including thigh-high TEDs, SCDs, and aspirin twice a day. 2. PT/OT. Weight bear as tolerated. Right total knee protocol. 3. Pain control, doing well with current pain regimen. 4. IV antibiotics x24 hours. 5. Disposition: Plan to discharge to home with some home health once adequately recovered and medically stable.
[2021-01-01] MEDS: Scopolamine CHECK PATCH PLACEMENT SCH (18:01)
[2021-01-01] MEDS: FERROUS GLUCONATE 324 MG TAB PO SCH (18:02)
[2021-01-01] MEDS: ASCORBIC ACID 500 MG TAB PO SCH (18:02)
[2021-01-01] MEDS: ceFAZolin 2000MG 2,000 MG/15 ML SYR IV SCH (18:07)
[2021-01-01] MEDS ORDERED: SENNA 8.6 MG TAB PO SCH (21:00)
[2021-01-01] MEDS: DOCUSATE SODIUM 100 MG CAP PO SCH (22:14)
[2021-01-01] MEDS: TAPENTADOL HCL ER 50 MG TABCR PO SCH (22:14)
[2021-01-01] MEDS: ASPIRIN 81 MG ECTAB PO SCH (22:16)
[2021-01-02] MEDS: KETOROLAC 30 MG/ML VIAL IV SCH ×3 (03:19→15:00)
[2021-01-02] MEDS: ceFAZolin 2000MG 2,000 MG/15 ML SYR IV SCH (03:20)
[2021-01-02] MEDS: Scopolamine CHECK PATCH PLACEMENT SCH ×2 (03:20→08:25)
[2021-01-02] MEDS: ACETAMINOPHEN 500 MG TAB PO SCH ×2 (05:41→15:00)
[2021-01-02 06:01] LABS: Hematocrit (blood only) 35.2 % (37-47); Hemoglobin 11.7 g/dL (12.0-16.0); Mean Corpuscular Hemoglobin 29.6 pg (25-34); Mean Corpuscular Hgb Conc 33.2 g/dL (32-36); Mean Corpuscular Volume 89.1 fL (80-100); Mean Platelet Volume 9.9 fL (7.4-10.4); Platelet Count 265 K/uL (130-400); RDW Coefficient of Variation 12.9 % (11.5-14.5); RDW Standard Deviation 42.2 fL (36.4-46.3); Red Blood Count 3.95 M/uL (4.2-5.4); White Blood Count 7.81 K/uL (4.8-10.8)
[2021-01-02] MEDS ORDERED: LEVOTHYROXINE SODIUM 175 MCG TABLET PO SCH (06:30)
[2021-01-02 06:48] LABS: BUN Creatinine Ratio 19.5 (10-20); Calcium 8.3 mg/dl (8.5-10.1); Creatinine Clr Calc Pharmacy 58.6 ml/min; Est GFR (African American) 59.5; Est GFR (Non-African American) 51.3; Potassium 4.7 mmol/L (3.5-5.1)
[2021-01-02] MEDS ORDERED: dexAMETHasone 4 MG TAB PO SCH (08:00)
[2021-01-02] MEDS: FERROUS GLUCONATE 324 MG TAB PO SCH (08:27)
[2021-01-02] MEDS: ASCORBIC ACID 500 MG TAB PO SCH (08:28)
[2021-01-02] MEDS: ASPIRIN 81 MG ECTAB PO SCH (08:28)
[2021-01-02] MEDS: DOCUSATE SODIUM 100 MG CAP PO SCH (08:28)
[2021-01-02] MEDS: TAPENTADOL HCL ER 50 MG TABCR PO SCH (08:32)
--- NOTE | 2021-01-02 08:40 | Progress Notes ---
DATE: 01/02/2021 SUBJECTIVE: A 65-year-old white female postop day 1 from right knee replacement. She is doing okay. Moderate amount of pain, but seems to be responding to pain medicine. No chest pain or shortness of breath. Not feeling dizzy or lightheaded. OBJECTIVE: VITAL SIGNS: Temperature 36.6. Vital signs stable. GENERAL: Physical examination shows a pleasant, middle-aged female. The patient is sitting up in her bedside chair and looks pretty comfortable this morning. EXTREMITIES: Examination of the right leg reveals the dressing to be clean, dry, and intact. No significant drainage. She can dorsiflex and plantarflex her foot appropriately. She is neurologically intact. LABORATORY DATA: Hemoglobin 11.7. Hematocrit 35.2. Electrolytes are stable. ASSESSMENT: A 65-year-old white female postop day 1 from right knee replacement, doing pretty well. Pain is adequately controlled. Mildly anemic, but asymptomatic. PLAN: 1. DVT prophylaxis including thigh-high TEDs, SCDs, and aspirin twice a day. 2. PT/OT. Weight bear as tolerated. Right total knee protocol. 3. Pain control, doing okay with current pain regimen. 4. Disposition: Plan to discharge to home with some home health likely later today.
[2021-01-02] MEDS ORDERED: MULTIVITAMIN TAB PO SCH (09:00)
[2021-01-02] MEDS ORDERED: hydroCHLOROthiazide 25 MG TAB PO SCH (09:00)
[2021-01-02] MEDS ORDERED: ENALAPRIL MALEATE 10 MG TAB PO SCH (09:00)
--- NOTE | 2021-01-05 08:03 | Discharge Summary ---
Date of Service January 05, 2021 Discharge Data Procedures Performed Operation Date: 01/01/21 08:50 Actual Procedures p Right Total Knee Arthroplasty(Right) - Michele Ferrer MD Hospital Course (1) Status post total right knee replacement: This patient is a 65 year old female admitted on 01/01/21 and underwent total knee arthroplasty. She tolerated the procedure well and there were no complications. Transferred to the PACU post op and later to the orthopedic floor for further care. She was given ancef for antibiotic prophylaxis. She was also given MIKE stockings, SCDs, and aspirin for DVT prophylaxis. Hemoglobin, hematocrit, and vital signs were monitored during her hospital stay and remained stable. Did not require any blood transfusions. There were no complications during her hospital stay. By post op day #1 the patient was tolerating a regular diet, pain was reasonably controlled with oral pain medicine, and she was participating in physical therapy. On post op day #1 the patient was discharged home and set up with home health care. She was given printed discharge instructions including prescriptions for extra strength tylenol, aspirin, and oxycodone. Continue physical therapy, weight bearing as tolerated. Continue MIKE stockings. Follow up approximately 2 weeks post op or sooner if there are problems or concerns. Coding Level of Care Code None Diagnoses Status post total right knee replacement Z96.651
== END 2021-01-02 16:49 | disposition home health service (06) ==
LOC: ASU 06:43 → 3E 06:43